=== PATIENT | male | born 1960 | race Caucasian/White ===

== ENCOUNTER → 2021-03-23 15:47 | Outpatient (CLI) | payer SELFPAY ==
--- NOTE | ~2021-03-23 | XR_ITS ---
XR lumbar spine 6V w bending 03/23/2021 16:57 Indication: Back pain Procedure: 7 views lumbar spine including oblique and flexion/extension views Comparison: No prior studies for comparison. Findings: There is disc narrowing at L4-5 and L5-S1. There is mild-moderate multilevel facet hypertro phy at L4-5 and L5-S1. No acute fracture, subluxation or dislocation. No spondylolisthesis. There are gallstones. There are prominent lateral bridging osteophytes at L3-4. Impression: 1: Moderate lumbar spondylosis. 2: Cholelithiasis. Reviewed, dictated and finalized at location A. Impression: 1: Moderate lumbar spondylosis. 2: Cholelithiasis.
== END ==
PROVIDERS: Visit Provider Chiropractor
DX: M47.896 Other spondylosis, lumbar region (principal); K80.20 Calculus of gallbladder without cholecystitis without obstruction
CPT/HCPCS: 72114